=== PATIENT | male | born 1935 | race Caucasian/White ===

== ENCOUNTER 2019-06-20 08:33 | Day surgery (SDC) | payer MEDICARE, BC ==
[2019-06-18 15:56] LABS: BASOPHILS # (AUTO) 0.04 x10^3/uL (0-0.1); BASOPHILS % (AUTO) 1 % (0-1); EOSINOPHILS # (AUTO) 0.12 x10^3/uL (0-0.4); EOSINOPHILS % (AUTO) 2 % (1-7); LYMPHOCYTES # (AUTO) 2.55 x10^3/uL (1-3.4); LYMPHOCYTES % (AUTO) 34 % (22-44); MD NO; MEAN CORPUSCULAR HEMOGLOBIN 30.6 pg (27.5-34.5); MEAN CORPUSCULAR HGB CONC 32.7 g/dL (33.2-36.2); MEAN CORPUSCULAR VOLUME 93.5 fL (81-97); MEAN PLATELET VOLUME 8.5 fL (7.4-10.4); MONOCYTES # (AUTO) 0.99 x10^3/uL (0.2-0.8); MONOCYTES % (AUTO) 13 % (2-9); NEUTROPHILS # (AUTO) 3.79 x10^3/uL (1.8-6.8); NEUTROPHILS % (AUTO) 51 % (42-75); PLATELET COUNT 252 x10^3/uL (130-400); RED BLOOD COUNT 4.52 x10^6/uL (4.38-5.82); RED CELL DISTRIBUTION WIDTH 14.6 % (9.4-14.8)
[2019-06-18 16:05] LABS: ALANINE AMINOTRANSFERASE 27 U/L (12-78); ALBUMIN 3.9 g/dL (3.4-5.0); ANION GAP 8 mmol/L (5-15); CHLORIDE 104 mmol/L (98-107); CREATININE 0.94 mg/dL (0.7-1.3)
[2019-06-18 16:08] LABS: ALKALINE PHOSPHATASE 84 U/L (45-117); BILIRUBIN,TOTAL 1.1 mg/dL (0.2-1.0); TOTAL PROTEIN 7.5 g/dL (6.4-8.2)
[2019-06-18 16:11] LABS: MICROSCOPIC INDICATED
[~2019-06-20] VITALS: Ht 177.8 cm; Wt 70.4 kg
[~2019-06-20 08:33] MED LIST: ASPI325T17 PO; ATOR20TA PO; FINA5TAB4 PO; IBUP-1902 PO; LISI5TAB7 PO
[2019-06-20 09:08] VITALS: BP 122/77
[2019-06-20] MEDS ORDERED: LACTATED RINGERS 1,000 ML IV SCH (09:08)
[2019-06-20] MEDS ORDERED: FENTANYL PF 250 MCG/5ML ONE (10:22)
[2019-06-20] MEDS ORDERED: MIDAZOLAM 1 MG/ML, 2ML ONE (10:22)
[2019-06-20] MEDS ORDERED: LIDOCAINE-MPF 2% ,5ML ONE (10:23)
[2019-06-20] MEDS ORDERED: PROPOFOL 10 MG/ML, 20ML ONE (10:23)
[2019-06-20] MEDS ORDERED: DEXAMETHASONE 4 MG/ML, 1ML ONE (11:29)
[2019-06-20] MEDS ORDERED: PHENYLEPHRINE 10 MG/ML ONE (11:29)
[2019-06-20] MEDS ORDERED: ONDANSETRON 2MG/ML, 2ML ONE (11:29)
[2019-06-20] MEDS ORDERED: CEFAZOLIN 1,000 MG ONE ×2 (11:35)
[2019-06-20] MEDS ORDERED: EPHEDRINE 50 MG/ML, 1ML ONE (11:47)
[2019-06-20] MEDS ORDERED: HALOPERIDOL 5 MG/ML IV PRN (12:00)
[2019-06-20] MEDS ORDERED: HYDROmorphone 2 MG/ML, 1ML IVPush PRN (12:00)
[2019-06-20] MEDS ORDERED: MEPERIDINE/PF 25MG/0.5ML IVPush PRN (12:00)
[2019-06-20] MEDS ORDERED: PROMETHAZINE 25 MG/ML, 1ML IV PRN (12:00)
[2019-06-20] MEDS ORDERED: HYDROcodone/APAP 7.5-325MG/15ML UDC PO PRN (12:00)
[2019-06-20] MEDS ORDERED: FENTANYL PF 100 MCG/2ML IV PRN (12:00)
[2019-06-20] MEDS ORDERED: EPHEDRINE 50 MG/ML, 1ML IVPush PRN (12:00)
[2019-06-20] MEDS ORDERED: OMNIPAQUE 350 MG/ML, 50 ML BOTTLE ONE (12:30)
[2019-06-20] MEDS ORDERED: HYDROcodone/APAP 7.5-325MG/15ML UDC ONE (12:34)
[2019-06-20] MEDS ORDERED: FENTANYL PF 100 MCG/2ML ONE (12:34)
== END 2019-06-20 14:30 | disposition home or self-care (01) ==
LOC: OUT 08:33
PROVIDERS: ATTEND Urology
DX: Z08 Encounter for follow-up examination after completed treatment for malignant neoplasm (principal); N40.1 Benign prostatic hyperplasia with lower urinary tract symptoms; R39.11 Hesitancy of micturition; R39.14 Feeling of incomplete bladder emptying; I10 Essential (primary) hypertension; I25.10 Atherosclerotic heart disease of native coronary artery without angina pectoris; E78.00 Pure hypercholesterolemia, unspecified; Z72.89 Other problems related to lifestyle; Z79.899 Other long term (current) drug therapy; Z79.82 Long term (current) use of aspirin; Z79.1 Long term (current) use of non-steroidal anti-inflammatories (NSAID); Z88.8 Allergy status to other drugs, medicaments and biological substances; Z85.51 Personal history of malignant neoplasm of bladder; Z87.442 Personal history of urinary calculi; Z85.828 Personal history of other malignant neoplasm of skin; Z80.52 Family history of malignant neoplasm of bladder; Z82.49 Family history of ischemic heart disease and other diseases of the circulatory system
CPT/HCPCS: 36415; 52005; 52204; 74420; 80053; 81001; 85025; 87086; 88112; 88305; 93005; C2625; J0690; J1100; J2250; J2370; J2405; J2704; J3010; J7120; Q9967